=== PATIENT | male | born 1960 | race Two or more races ===

== ENCOUNTER 2020-01-18 09:40 | Day surgery (SDC) | payer OTHER ==
[~2020-01-18 09:40] MED LIST: CLONAZEPAM0.5 MG PO; GLYCOTROL CAPS1 EACH PO; LIPITOR40 M1 PO; LOVAZA1 GM PO; OSTERA TABLET1 EACH PO; PAXIL20 MG PO; RELAFEN DS1000 MG PO
== END 2020-01-18 22:55 | disposition home or self-care (01) ==
LOC: CIR.AMB 09:40
DX: K64.8 Other hemorrhoids (principal); K64.4 Residual hemorrhoidal skin tags